=== PATIENT | male | born 1955 | race Caucasian/White ===

== ENCOUNTER 2017-04-29 23:27 | Emergency (ER) | payer MEDICARE, MEDICAID ==
[~2017-04-29] VITALS: Ht 177.8 cm; Wt 122.5 kg
[2017-04-29 23:33] VITALS: BP 141/96
--- NOTE | 2017-04-29 23:41 | NUR ---
BRISEYDA TEMPLETON MADE AWARE OF PT STATUS, STATES OK FOR PT TO SIT IN LOBBY
--- NOTE | 2017-04-30 00:02 | NUR ---
PT AMBULATED TO ER [facility]
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
--- NOTE | 2017-04-30 00:07 | NUR ---
DR. TEMPLETON EVALUATING PT AT THIS TIME.
[2017-04-30 00:48] LABS: APPEARANCE,URINE CLEAR (CLEAR); BILIRUBIN,URINE NEGATIVE (NEGATIVE); BLOOD, URINE TRACE-I (NEGATIVE); COLOR,URINE YELLOW (YELLOW); LEUKOCYTE ESTERASE ,URINE NEGATIVE (NEGATIVE); NITRITE, URINE NEGATIVE (NEGATIVE); UGLUCOSE NEGATIVE (NEGATIVE)
--- NOTE | 2017-04-30 00:54 | NUR ---
PT TAKEN TO CT
[2017-04-30 01:01] LABS: RBC,URINE 0-5 (RARE) /HPF (0-5); WBC,URINE 0-5 (RARE) /HPF (0-5)
[2017-04-30 01:27] VITALS: BP 119/82
--- NOTE | 2017-04-30 01:27 | NUR ---
Patient discharged with v/s stable. Written and verbal after care instructions given and explained. Patient alert, oriented and verbalized understanding of instructions. Ambulatory with steady gait. All questions addressed prior to discharge. ID band removed. Patient advised to follow up with PMD. Rx of TYLENOL 500MG given. Patient educated on indication of medication including possible reaction and side effects. Opportunity to ask questions provided and answered.
== END 2017-04-30 01:27 | disposition home or self-care (01) ==
LOC: MED 23:27
DX: S16.1XXA Strain of muscle, fascia and tendon at neck level, initial encounter (principal); V43.62XA Car passenger injured in collision with other type car in traffic accident, initial encounter; Y93.89 Activity, other specified; Y92.488 Other paved roadways as the place of occurrence of the external cause; Y99.8 Other external cause status
CPT/HCPCS: 70450; 71045; 72125; 81001; 99285